=== PATIENT | female | born 1970 | race Two or more races ===

== ENCOUNTER 2019-07-28 14:16 | Emergency (ER) | payer OTHER ==
[~2019-07-28] VITALS: Ht 165.1 cm; Wt 87.5 kg
[2019-07-28 14:41] VITALS: Ht 165.1 cm; Wt 87.5 kg
[2019-07-28 16:35] LABS: BASOPHIL % 0.3 % (0-2); PLATELET COUNT 146 x10^3mcL (130-400); RED CELL DISTRIBUTION WIDTH 17.2 % (11.5-14.5)
[2019-07-28 16:50] LABS: CARBON DIOXIDE 29.8 mmol/L (21-32); CHLORIDE SERUM 102 mmol/L (98-107); CREATININE SERUM 0.8 mg/dL (0.6-1.0); GFR1 > 60 mL/min; GLUCOSE SERUM 88 mg/dL (74-106); POTASSIUM SERUM 3.6 mmol/L (3.5-5.1); SODIUM SERUM 139 mmol/L (136-145)
[2019-07-28 16:55] LABS: ALKALINE PHOSPHATASE 89 U/L (46-116); ALT/SGPT 66 U/L (14-59); AST/SGOT 38 U/L (15-37); BILIRUBIN TOTAL 0.8 mg/dL (0.20-1.00); CHOLESTEROL 200 mg/dL (<200); TOTAL PROTEIN, SERUM 8.2 g/dL (6.4-8.2)
[2019-07-28 16:58] LABS: HDL CHOLESTEROL 75 mg/dL (40-60)
[2019-07-28 17:30] VITALS: BP 125/69
== END 2019-07-28 17:30 | disposition home or self-care (01) ==
LOC: ED 14:16
PROVIDERS: Emergency Medicine
DX: R51 Headache (principal); H92.03 Otalgia, bilateral; R53.1 Weakness; R42 Dizziness and giddiness; R11.0 Nausea
CPT/HCPCS: J1885; J2405; J7030; J8597

== ENCOUNTER 2019-08-12 06:02 | Emergency (ER) | payer OTHER ==
[~2019-08-12] VITALS: Ht 165.1 cm; Wt 77.6 kg
[2019-08-12 06:12] VITALS: Ht 165.1 cm; Wt 77.6 kg
[2019-08-12 07:05] LABS: CALCIUM 8.9 mg/dL (8.5-10.1); CARBON DIOXIDE 27.1 mmol/L (21-32); CHLORIDE SERUM 104 mmol/L (98-107); CREATININE SERUM 0.8 mg/dL (0.6-1.0); GFR1 > 60 mL/min; GLUCOSE SERUM 91 mg/dL (74-106); POTASSIUM SERUM 3.6 mmol/L (3.5-5.1); SODIUM SERUM 141 mmol/L (136-145)
[2019-08-12 07:09] LABS: ALKALINE PHOSPHATASE 92 U/L (46-116); ALT/SGPT 48 U/L (14-59); AST/SGOT 37 U/L (15-37); BILIRUBIN TOTAL 0.56 mg/dL (0.20-1.00); TOTAL PROTEIN, SERUM 7.9 g/dL (6.4-8.2)
[2019-08-12 07:13] LABS: BASOPHIL % 0.6 % (0-2); PLATELET COUNT 163 x10^3mcL (130-400); RED CELL DISTRIBUTION WIDTH 17.2 % (11.5-14.5)
[2019-08-12 09:22] VITALS: BP 127/71
== END 2019-08-12 09:22 | disposition home or self-care (01) ==
LOC: ED 06:02
PROVIDERS: Emergency Medicine
DX: R07.89 Other chest pain (principal); F41.9 Anxiety disorder, unspecified
CPT/HCPCS: 36415; 85378; J1885; J2270; Q0092